=== PATIENT | female | born 1990 | race African-American/Black ===

== ENCOUNTER 2022-04-27 15:02 | Inpatient (IN) | payer OTHER, SELFPAY ==
[2022-04-27] VITALS (39 sets, daily range): BP systolic 94–137; BP diastolic 45–105; PULSE 32–124; RESP 12–20; TEMP 35.9–36.6; O2SAT 71–100; BMI 54.8
--- NOTE | 2022-04-27 15:22 | OBADM ---
This patient, Sg Zapien, admitted to the OB room OB Post 115 for observation. Patient/family oriented to hospital policies and general routines including ID bracelet, bed and alarms, visiting hours, pain management, procedures, bathroom and other care routines, personal items, smoking policy, room service/diet, and visiting hours. Patient/Family are encouraged to report perceived risks to care and to ask questions if they do not understand what they are told or what they should do.
[2022-04-27] MEDS: LACTATED RINGERS 1,000 ML 125 ML IV CONT (16:13)
--- NOTE | 2022-04-27 16:42 | PM.IMHP ---
H&P: HPI History of Present Illness Date/Time: 04/27/22 16:42 Chief Complaint: intrauterine at term chronic hypertension Narrative: 31 yo at 37w1d who presented 37w1d who presents for repeat . Pt's has been complicated by chronic hypertension. Pt has been non-compliant with her antihypertensives. Pt was seen by MFM today and was noted to have non-reassuring heart tones with repetitive decels. Pt did have an 8/8 BPP but it was noted to take the whole 30 minutes. Review of Systems Cardiovascular: Cardiovascular: Denies chest pain, Denies leg edema, Denies palpitations, Denies dyspnea and Denies dyspnea on exertion Respiratory: Respiratory: Reports cough, Denies dyspnea and Denies dyspnea on exertion Gastrointestinal: Gastrointestinal: Denies abdominal pain, Denies constipation, Denies diarrhea, Denies nausea and Denies vomiting Genitourinary: Genitourinary: Denies hematuria, Denies urinary frequency, Denies dysuria, Denies pelvic pain, Denies urinary incontinence and Denies vaginal discharge Neurologic: Reports system reviewed and no additional complaints, except as documented Psychiatric: Psychiatric: Reports no additional psychiatric complaints Endocrine: Endocrine: Denies palpitations [facility] Past Medical History Medical History (Updated 04/27/22 @ 16:57 by Omari Maldonado MD) Brown recluse spider bite (12/06/21) History of hypertension Suppression of menstruation Vaginal discharge Surgical History Surgical History Delivery by section (08/09/12) primary c/s distress Delivery by section (06/20/15) rpt c/s Delivery by section (08/30/16) rpt c/s Family History Family History Mother Diabetes mellitus Social History Social History Smoking status: Never smoker Alcohol intake: never Substance use: never Substance use type: does not use Gender identity (if verbalized by the patient): Female Sexual Orientation (if Verbalized by the Patient): Straight or Heterosexual Meds Home Medications and Allergies Home Medications Medication Instructions Recorded Confirmed Type vits no.126-ferrous fum 1 tablet PO DAILY 30 days #30 tabs 10/06/21 04/27/22 Rx 28 mg iron-folic acid 800 mcg tablet (Classic ) azithromycin 250 mg tablet See Rx Instructions PO .COMPLEX #6 04/27/22 04/27/22 Rx tabs Allergies Allergy/AdvReac Type Severity Reaction Status Date / Time cephalexin Allergy Severe Hives Verified 04/27/22 11:29 metronidazole [From Metrogel] Allergy Intermediate severe Verified 04/27/22 11:29 vaginal swelling diphenhydramine Allergy Itching Verified 04/27/22 15:19 [From Benadryl] prednisone Allergy Rash Verified 04/27/22 15:19 Vital Signs Vital Signs - 24 hr 04/27/22 15:32 04/27/22 15:33 Pulse Rate 78 78 Blood Pressure 126/77 126/77 Exam Const: General: no acute distress Eyes: EOM: EOMs intact bilaterally Neck: Neck: supple Thyroid: thyroid normal Chest: Breast/axilla inspection: normal inspection of the breasts Breast/axilla palpation: normal palpation of the breasts, normal palpation of the axillae and no axillary lymphadenopathy Resp: Effort & Inspection: normal respiratory effort Auscultation: clear to auscultation bilaterally Cardio: Rate: regular rate Rhythm: regular rhythm GI: Inspection: non-distended and other (Gravid) GI Palp: Yes Soft to palpation, No Tenderness to palpation present (GI) and No Guarding due to palpation present (GI) Auscultation: normal bowel sounds : Speculum Exam - Vagina: No vaginal bleeding OB/external & speculum: external exam normal; No vaginal bleeding Skin: General skin exam: normal color and no rashes or lesions noted Neuro: Cognition (Neuro)
[2022-04-27 16:58] LABS: Basophils Percent Auto 0.3 % (0.2-1.2); Eosinophils Absolute Auto 0.1 K/mm3 (0-0.3); Eosinophils Percent Auto 0.6 % (0-4.4); Hematocrit 38.5 % (37.0-47.0); Hemoglobin 12.3 g/dL (12.0-15.0); Immature Granulocyte Absolute 0.03 K/mm3 (0.00-0.031); Immature Granulocyte Percent A 0.3 % (0-0.5); Lymphocytes Absolute Auto 2.06 K/mm3 (0.9-3.2); Lymphocytes Percent Auto 20.6 % (18.3-44.2); Mean Corpuscular HGB Conc 31.9 g/dl (32-36); Mean Corpuscular Hemoglobin 27.3 pg (26-34); Mean Corpuscular Volume 85.4 fl (80-100); Mean Platelet Volume 11.7 fl (7.4-10.4); Monocytes Absolute Auto 0.4 K/mm3 (0.1-0.6); Monocytes Percent Auto 4.3 % (2.6-8.5); Neutrophils Absolute Auto 7.4 K/mm3 (1.3-6.7); Neutrophils Percent Auto 73.9 % (45.5-73.1); Platelet Count Result 205 k/mm3 (150-375); Red Blood Count 4.51 M/mm3 (4.2-5.4); Red Cell Distribution Width 13.2 % (11.5-14.5)
--- NOTE | 2022-04-27 16:59 | WPDHPUPDATE1 ---
History and Physical Update Update Date/Time: 04/27/22 16:59 History and Physical has been reviewed, including an updated exam of the patient. There are NO changes in the patient's condition. Risks, benefits, and alternatives have been discussed and questions answered. Patient agrees to proceed with procedure.
[2022-04-27 17:09] LABS: Alanine Aminotransferase 25 U/L (6-35); Albumin Level 3.8 g/dL (3.5-5.1); Alkaline Phosphatase 201 U/L (38-126); Anion Gap 8 mmol/L (8-16); Aspartate Amino Transferase 21 U/L (14-36); Bilirubin,Total 0.4 mg/dL (0.2-1.3); Blood Urea Nitrogen 6 mg/dL (7-17); Calcium 8.9 mg/dL (8.4-10.2); Carbon Dioxide 26 mmol/L (22-30); Chloride 102 mmol/L (98-107); Estimated CRCL calculation 164 ml/min; Estimated Glomerular Filt Rate > 60; Glucose 84 mg/dL (65-110); Potassium 3.9 mmol/L (3.4-5.0); Sodium 136 mmol/L (137-145)
[2022-04-27 17:16] LABS: Amphetamine Screen Urine Negative (Negative); Barbiturate Screen Urine Negative (Negative); Benzodiazepines Screen Urine Negative (Negative); Cannabinoid Screen Urine Negative (Negative); Cocaine Screen Urine Negative (Negative); Methadone Screen Urine Negative (Negative); Opiate Screen Urine Negative (Negative); Phencyclidine Screen Urine Negative (Negative)
--- NOTE | 2022-04-27 17:20 | WPDANESEPP ---
Anes - Eval Pre Procedure Procedure: Repeat c section Date/Time: 04/27/22 17:20 Surgeon: Joel Preop Diagnosis: Previous c section Pre Op Diagnosis: 37 w/d Patient Data Age: 31 Gender: F Height: 1.63 m Weight: 145 kg Last Vital Signs Pulse 76 04/27/22 17:19 BP 129/78 04/27/22 17:19 O2 Del Method Room Air 04/27/22 16:46 Allergies Allergy/AdvReac Type Severity Reaction Status Date / Time cephalexin Allergy Severe Hives Verified 04/27/22 11:29 metronidazole [From Metrogel] Allergy Intermediate severe Verified 04/27/22 11:29 vaginal swelling diphenhydramine Allergy Itching Verified 04/27/22 15:19 [From Benadryl] prednisone Allergy Rash Verified 04/27/22 15:19 Home Medications Medication Instructions Recorded Confirmed Type vits no.126-ferrous fum 1 tablet PO DAILY 30 days #30 tabs 10/06/21 04/27/22 Rx 28 mg iron-folic acid 800 mcg tablet (Classic ) azithromycin 250 mg tablet See Rx Instructions PO .COMPLEX #6 04/27/22 04/27/22 Rx tabs Laboratory Tests 04/27/22 04/27/22 04/27/22 16:42 16:42 16:42 WBC 10.0 K/mm3 K/mm3 (4.5-10.0) RBC 4.51 M/mm3 M/mm3 (4.2-5.4) Hgb 12.3 g/dL g/dL (12.0-15.0) Hct 38.5 % % (37.0-47.0) MCV 85.4 fl fl (80-100) MCH 27.3 pg pg (26-34) MCHC 31.9 g/dl L g/dl (32-36) RDW 13.2 % % (11.5-14.5) Plt Count 205 k/mm3 k/mm3 (150-375) MPV 11.7 fl H fl (7.4-10.4) Immature Gran % (Auto) 0.3 % % (0-0.5) Neut % (Auto) 73.9 % H % (45.5-73.1) Lymph % (Auto) 20.6 % % (18.3-44.2) Gaston % (Auto) 4.3 % % (2.6-8.5) Eos % (Auto) 0.6 % % (0-4.4) Baso % (Auto) 0.3 % % (0.2-1.2) Lymph # (Auto) 2.06 K/mm3 K/mm3 (0.9-3.2) Gaston # (Auto) 0.4 K/mm3 K/mm3 (0.1-0.6) Eos # (Auto) 0.1 K/mm3 K/mm3 (0-0.3) Baso # (Auto) 0.0 K/mm3 K/mm3 (0.0-0.1) Abs Immat Gran (auto) 0.03 K/mm3 K/mm3 (0.00-0.031) Absolute Neuts (auto) 7.4 K/mm3 H K/mm3 (1.3-6.7) Absolute Nucleated RBC 0.0 K/mm3 K/mm3 (0.0-0.012) Nucleated RBC % 0.0 % % (0.0-0.2) Sodium Potassium Chloride Carbon Dioxide Anion Gap BUN Creatinine Estim Creat Clear Calc Estimated GFR Glucose Calcium Total Bilirubin AST ALT Alkaline Phosphatase Total Protein Albumin Urine Opiates Screen Urine Methadone Screen Ur Barbiturates Screen Ur Phencyclidine Scrn Ur Amphetamine Screen U Benzodiazepines Scrn Urine Cocaine Screen U Cannabinoids Screen RPR Pending HIV 1&2 Ab/P24 Ag 4thGn Blood Type Pending Antibody Screen Pending 04/27/22 04/27/22 04/27/22 16:42 16:42 16:42 WBC RBC Hgb Hct MCV MCH MCHC RDW Plt Count MPV Immature Gran % (Auto) Neut % (Auto) Lymph % (Auto) Gaston % (Auto) Eos % (Auto) Baso % (Auto) Lymph # (Auto) Gaston # (Auto) Eos # (Auto) Baso # (Auto) Abs Immat Gran (auto) Absolute Neuts (auto) Absolute Nucleated RBC Nucleated RBC % Sodium 136 mmol/L L mmol/L (137-145) Potassium 3.9 mmol/L mmol/L (3.4-5.0) Chloride 102 mmol/L mmol/L (98-107) Carbon Dioxide 26 mmol/L mmol/L (22-30) Anion Gap 8 mmol/L mmol/L (8-16)
[2022-04-27] MEDS: GENTAMICIN SULFATE INJ 455 MG in DEXTROSE 5% 100 ML 94.28 MG IVPB (17:37)
[2022-04-27 17:55] LABS: HIV 1/2 Ab P24 Ag Result Negative (Negative)
--- NOTE | 2022-04-27 18:01 | P.PNAN_ITS ---
Anes - Eval Final PreProcedure Day of Procedure 04/27/22 18:01 Patient weight: super morbidly obese Heart: regular rate and rhythm Lungs: clear to auscultation and normal air movement Airway: Mallampati scale class IV Neurological: alert and oriented Last oral intake: >/= 8 hours ASA classification: III Emergent: no Anesthetic plan: proceed Anesthesia type and monitoring: regional spinal Results Review: All pre-operative results and documents have been reviewed as part of the pre- operative evaluation. Informed Consent: The patient's anesthetic plan and its attendant risks and benefits were di scussed with the patient/family/POA. Questions were solicited and answers provided to the satisfaction of the patient/family/POA.
--- NOTE | 2022-04-27 20:32 | W.PM.PROC2 ---
Procedure Note - Detailed Date of Procedure 04/27/22 Pre-op Diagnosis intrauterine at term chronic hypertension non-reassuring FHT Post-op Diagnosis Same Procedure Performed repeat low transverse section bilateral salpingectomy Surgeon Omari Maldonado MD Anesthesia Spinal and Epidural Indications CHTN non-reassuring FHT Findings Dense adhesions between the rectus muscle and abdominal wall, omental adhesions to the anterior uterine wall Description of Procedure The patient was taken to the operating room. A combined spinal epidural anesthesic was administered and found to be adequate at a t-10 level. The patient was placed in a supine position with a slight left lateral tilt. A england catheter was placed with return of clear urine. A Bovie grounding pad was placed. Surgical prep was performed and surgical drapes were placed. A surgical time out was performed. A Pfannenstiel skin incision was then made with the scalpel and carried through to the underlying layer of fascia. The fascia was then incised in the midline and the incision was extended laterally with the Snell scissors. Dense adhesions were noted almost masking the fascial layer. The superior aspect of the fascia was then grasped with the Jesse clamps, elevated, and the underlying rectus muscles dissected off bluntly and sharply. Attention was then turned to the inferior aspect of this incision which, in a similar fashion, was grasped, tented up with the Jesse clamps, and the rectus muscles dissected off both bluntly and sharply. The rectus muscles were then in the midline. The peritoneum was not able to be identified due to adhesions. The intraperitoneal cavity was entered sharply. Adhesions were felt along the anterior surface of the uterus. The rectus muscles were difficult to separate due to adhesions limiting access to the abdominal cavity. The rectus muscles were dissected off the anterior abdominal wall adhesions sharply. A Mobius retractor was placed to help with visualization. The vesico-uterine serosa was identified and adhesions were dissected to identify uterine serosa and to create a bladder flap. The uterus was inspected for rotation. A low-transverse uterine incision was made sharply with the scalpel and entry was made into the uterine cavity. An amniotomy was made and copious amounts of clear fluid were noted on return. The uterine incision was extended laterally bluntly. Attempts were made to deliver the fetus through the hysterotomy but was limited due to adhesive tissue. A kiwi vacuum was applied but popped off. The mobius retractor was removed. A Maylard incision was made to the left belly of the rectus muscle. Elizabetht-Barone forceps were then obtained. The head was noted to be occiput to the maternal left. The right blade was placed along the head. The left blade was then placed along the head. The forceps approximated without difficulty. The fetus was then delivered through the hysterotomy without difficulty. The umbilical cord was clamped twice and cut. The infant was handed off to the waiting staff. A second segment of umbilical cord was clamped and cut for cord blood gasses. Cord blood was collected for determination of the blood type and for direct Stevens. The placenta was delivered spontaneously without difficulty. The placenta appeared grossly normal and complete. The uterus was exteriorized and cleared of all clots and debris. The uterine incision was repaired using 0-monocryl suture in a running fashion. Attention was not turned to the fallopian tubes to perform the salpingectomy. The left fallopian tube was identified and followed out to the fimbriae. The fallopian tube was transected using the ligasure device. The procedure was then repeated on the right side. The uterine closure was inspected for hemostasis. Several areas were coagulated using Bovie cautery. Hemaderm was then applied to the hysterotomy and site of
[2022-04-27] MEDS: KETOROLAC 30 MG/ML VIAL (*BKC) IV PUSH (23:14)
[2022-04-28] VITALS (7 sets, daily range): BP systolic 114–147; BP diastolic 68–89; PULSE 68–85; RESP 16–18; TEMP 35.9–36.6; O2SAT 100
[2022-04-28 05:17] LABS: Basophils Absolute Auto 0.1 K/mm3 (0.0-0.1); Basophils Percent Auto 0.4 % (0.2-1.2); Eosinophils Percent Auto 0.1 % (0-4.4); Hematocrit 36.1 % (37.0-47.0); Hemoglobin 11.4 g/dL (12.0-15.0); Immature Granulocyte Absolute 0.04 K/mm3 (0.00-0.031); Immature Granulocyte Percent A 0.3 % (0-0.5); Lymphocytes Absolute Auto 1.48 K/mm3 (0.9-3.2); Lymphocytes Percent Auto 11.1 % (18.3-44.2); Mean Corpuscular HGB Conc 31.6 g/dl (32-36); Mean Corpuscular Hemoglobin 27.3 pg (26-34); Mean Corpuscular Volume 86.4 fl (80-100); Mean Platelet Volume 11.7 fl (7.4-10.4); Monocytes Absolute Auto 0.7 K/mm3 (0.1-0.6); Monocytes Percent Auto 5.1 % (2.6-8.5); Neutrophils Absolute Auto 11.1 K/mm3 (1.3-6.7); Platelet Count Result 183 k/mm3 (150-375); Red Blood Count 4.18 M/mm3 (4.2-5.4); Red Cell Distribution Width 13.2 % (11.5-14.5); White Blood Count 13.3 K/mm3 (4.5-10.0)
[2022-04-28] MEDS: MULTIVIT/MIN/PREN/FOL AC/IRON TABLET 1 TAB PO (07:30)
[2022-04-28] MEDS: DOCUSATE SODIUM 100 MG CAPSULE PO (07:30)
[2022-04-28] MEDS: POLYSACCHARIDE IRON COMPLEX 150 MG CAPSULE PO (07:30)
[2022-04-28] MEDS: SIMETHICONE 80 MG TAB.CHEW PO ×3 (07:30→23:25)
[2022-04-28] MEDS: HYDROcodone/acetaminophen (*CRX) 10-325 MG TABLET 1 TAB PO ×2 (07:31→10:28)
[2022-04-28] MEDS: IBUPROFEN 600 MG TABLET PO ×2 (07:31→23:25)
--- NOTE | 2022-04-28 08:07 | WPDANLDNPN2 ---
Anes-Prog Note L&D-Neuraxial Date/Time: 04/28/22 08:07 Patient feedback: Patient satisfied with post-operative pain management.
--- NOTE | 2022-04-28 08:07 | WPDANLDPN2 ---
Anes-Prog Note L&D Date/Time: 04/28/22 08:07 Neuro status: Neuro function grossly intact. Vital Signs: Last Vital Signs Temp 35.9 C L 04/27/22 23:30 Pulse 68 04/28/22 04:45 Resp 18 04/28/22 04:45 BP 123/77 04/28/22 04:45 Pulse Ox 100 04/28/22 04:45 O2 Del Method Room Air 04/28/22 04:45 Pain score (VAS): 0 I/O: Intake & Output 04/27/22 04/28/22 04/28/22 23:59 07:59 15:59 Intake Total 500 800 Output Total 225 Balance 500 575 Patient feedback: Patient satisfied with anesthetic care.
[2022-04-28 09:02] LABS: Rapid Plasma Reagin Non-Reactive (NonReactive)
--- NOTE | 2022-04-28 09:49 | PM.GYNPNOP ---
CATTLE MANAGER - A/P Postoperative Procedures: Procedures Operation Date: 04/27/22 18:45 Actual Procedure Side Surgeon p Section Bilateral Omari Maldonado MD Time Spent With Patient Time: Total time spent is greater than 50% in coordination of care (as documented) at patient's floor/unit and/or counseling patient: Time with patient: 15 - 25 minutes CATTLE MANAGER- PN:Subj Post-Op Subjective Date/time seen: 04/28/22 09:49 31-year-old female status post repeat and tubal ligation. This morning pain is reasonably well controlled, she is eating regular diet without nausea vomiting. Has not had any flatus or bowel of yet. Abdomen soft appropriately tender. Bandage dry. Plan: 1. Continue routine care 2. Expect discharge in day or 2 when clinical situation dictates. CATTLE MANAGER - PN: Obj Data Vital Signs Vital Signs: Vital Signs - 24 hr 04/27/22 16:46 04/27/22 15:32 04/27/22 17:19 Temperature Pulse Rate 78 76 Respiratory Rate Blood Pressure 126/77 129/78 Pulse Oximetry Oxygen Delivery Room Air 04/27/22 16:00 04/27/22 18:02 04/27/22 18:32 Temperature 97.9 F Pulse Rate 78 85 Respiratory Rate Blood Pressure 130/72 136/73 Pulse Oximetry Oxygen Delivery 04/27/22 21:26 04/27/22 21:31 04/27/22 21:36 Temperature Pulse Rate 71 Respiratory Rate Blood Pressure 99/52 L Pulse Oximetry 100 100 98 Oxygen Delivery 04/27/22 21:40 04/27/22 21:45 04/27/22 21:46 Temperature Pulse Rate 74 Respiratory Rate Blood Pressure 99/55 L Pulse Oximetry 95 100 Oxygen Delivery 04/27/22 21:50 04/27/22 21:57 04/27/22 21:58 Temperature Pulse Rate Respiratory Rate Blood Pressure Pulse Oximetry 100 86 L 83 L Oxygen Delivery 04/27/22 22:02 04/27/22 22:07 04/27/22 22:12 Temperature Pulse Rate Respiratory Rate Blood Pressure Pulse Oximetry 71 L 95 99 Oxygen Delivery 04/27/22 22:14 04/27/22 22:19 04/27/22 22:22 Temperature Pulse Rate Respiratory Rate Blood Pressure Pulse Oximetry 98 91 92 Oxygen Delivery 04/27/22 22:22 04/27/22 22:25 04/27/22 22:28 Temperature Pulse Rate Respiratory Rate Blood Pressure Pulse Oximetry 96 95 72 L Oxygen Delivery 04/27/22 22:30 04/27/22 22:35 04/27/22 22:40 Temperature Pulse Rate Respiratory Rate Blood Pressure Pulse Oximetry 79 L 100 100 Oxygen Delivery 04/27/22 22:45 04/27/22 22:50 04/27/22 22:55 Temperature Pulse Rate Respiratory Rate Blood Pressure Pulse Oximetry 100 100 96 Oxygen Delivery 04/27/22 23:00 04/27/22 23:00 04/27/22 23:03 Temperature Pulse Rate 65 Respiratory Rate Blood Pressure 137/105 H Pulse Oximetry 100 100 Oxygen Delivery 04/27/22 20:40 04/27/22 20:55 04/27/22 21:10 Temperature 97.4 F L Pulse Rate 75 71 66 Respiratory Rate 12 16 16 Blood Pressure 97/52 L 102/48 L 94/45 L Pulse Oximetry 100 100 100 Oxygen Delivery Room Air Room Air Room Air 04/27/22 21:25 04/27/22 21:40 04/27/22 21:55 Temperature 97.8 F Pulse Rate 66 Respiratory Rate 16 16 16 Blood Pressure 99/47 L Pulse Oximetry 100 Oxygen Delivery Room Air 04/27/22 22:10 04/27/22 22:25 04/27/22 22:48 Temperature Pulse Rate Respiratory Rate 16 16 16 Blood Pressure Pulse Oximetry Oxygen Delivery 04/27/22 23:30 04/27/22 23:30 04/28/22 04:45 Temperature 96.7 F L Pulse Rate 73 73 68 Respiratory Rate 20 20 18 Blood Pressure 136/76 Pulse Oximetry 100 100 100 Oxygen Delivery Room Air Room Air 04/28/22 04:45 04/28/22 07:35 04/27/22 15:33 Temperature 97.6 F Pulse Rate 68 72 78 Respiratory Rate 18 16 Blood Pressure 123/77 135/84 126/77 Pulse Oximetry 100 100 Oxygen Delivery Intake/Output Intake/Output: Intake & Output 04/25/22 04/26/22 04/27/22 04/28/22 23:59 23:59 23:59 23:59 Intake Total 500 800 Output Total 225
--- NOTE | 2022-04-28 11:09 | PM.OBPRVD ---
OB - Delivery Note Procedure Delivery date: 04/27/22 Procedure: Procedures Operation Date: 04/27/22 18:45 Actual Procedure Side Surgeon p Section Bilateral Omari Maldonado MD Events: Chronic Hypertension Intrapartal Events: Non-Reassuring Status Induction method: None Route of delivery: (repeat low transverse) Specimen: Yes (placenta) Quantitative Blood Loss (ml): 515 Anesthesia type: Spinal Disposition: Floor Narrative: See operative note for dictation Baby Date of : 04/27/22 Weeks of gestation at delivery: 37 gender: Male Weight (pounds): 6 Weight (ounces): 6 presentation: vertex position: Transverse Placenta delivery description: Manual Removal Cord Vessel Description: 3 Vessels score one minute: 2 score five minutes: 9 AMG Delivery Billing Delivery Delivery: Delivery Charge
[2022-04-28] MEDS: HYDROcodone/acetaminophen (*CRX) 5-325 MG TABLET 1 TAB PO (23:25)
[2022-04-29] MEDS: HYDROcodone/acetaminophen (*CRX) 10-325 MG TABLET 1 TAB PO ×2 (05:01→23:25)
[2022-04-29] MEDS: SIMETHICONE 80 MG TAB.CHEW PO ×3 (05:01→17:45)
--- NOTE | 2022-04-29 07:15 | PM.OBPNVD ---
OB - PN: Subj Subjective Date/time seen: 04/29/22 07:15 Narrative: POD#2 Sg reports doing well today. Her bleeding is light. Her pain is controlled, having some gas pains. She is tolerating regular diet, voiding, passing gas, and ambulating without issues. She denies any issues with her incision. She is bottle feeding. OB - PN: Obj Data Labs CBC & Chem 7: 04/28/22 04:46 04/27/22 16:42 Labs: Laboratory Results - last 24 hr 04/27/22 16:42 RPR Non-reactive OB - PN A/P Assessment and Plan (1) S/P repeat low transverse : Code(s): Z98.891 - History of uterine scar from previous surgery Status: Acute (2) S/P tubal ligation: Code(s): Z98.51 - Tubal ligation status Status: Acute Plan day: 2 Plan: routine care and discharge home (tomorrow AM) Comments: - Will restart home labetalol 100mg BID - Pelvic rest; take meds as prescribed - Incision care/no heavy lifting - ER return precautions: fever, n/v/abd pain, bleeding, HTN Time Spent With Patient Time: Total time spent is greater than 50% in coordination of care (as documented) at patient's floor/unit and/or counseling patient: Review of Systems Constitutional: Constitutional: Denies chills, Denies fever(s) and Denies headache(s) Eyes: Eyes: Denies change in vision ENT: Denies dizziness and Denies headache(s) Cardiovascular: Cardiovascular: Denies chest pain, Denies palpitations and Denies dyspnea Respiratory: Respiratory: Denies cough and Denies dyspnea Gastrointestinal: Gastrointestinal: Denies nausea and Denies vomiting Genitourinary: Comments: normal bleeding Neurologic: Denies dizziness and Denies headache(s) Endocrine: Endocrine: Denies palpitations Exam Const: General: cooperative, comfortable and no acute distress Orientation/consciousness: patient oriented x3 Resp: Effort & Inspection: normal respiratory effort Auscultation: clear to auscultation bilaterally Cardio: Rate: regular rate GI: Inspection: non-distended and incision (covered with clean dressing) GI Palp: Yes abdominal tenderness (appropriate) and Yes Soft to palpation Auscultation: normal bowel sounds : Other: fundus firm Skin: General skin exam: normal color Neuro: General: patient oriented x3 Extrem: General: normal to inspection Psych: Appearance: grossly normal Affect: normal affect Attitude: cooperative
[2022-04-29 07:40] VITALS: BP 141/88; PULSE 87; RESP 18; TEMP 36.7; O2SAT 100
[2022-04-29 09:00] VITALS: PULSE 87; RESP 18; O2SAT 100
[2022-04-29] MEDS: IBUPROFEN 600 MG TABLET PO ×2 (10:45→17:45)
[2022-04-29] MEDS: MULTIVIT/MIN/PREN/FOL AC/IRON TABLET 1 TAB PO (10:45)
[2022-04-29] MEDS: DOCUSATE SODIUM 100 MG CAPSULE PO ×2 (10:45→17:45)
[2022-04-29] MEDS: HYDROcodone/acetaminophen (*CRX) 5-325 MG TABLET 1 TAB PO ×2 (11:28→17:45)
[2022-04-29 11:31] VITALS: PULSE 82
[2022-04-29] MEDS: LABETALOL HCL 100 MG TABLET PO (11:31)
[2022-04-29 18:54] VITALS: BP 133/79; PULSE 69; RESP 20; TEMP 36.6; O2SAT 100
[2022-04-30] MEDS: HYDROcodone/acetaminophen (*CRX) 5-325 MG TABLET 1 TAB PO ×3 (04:55→16:30)
[2022-04-30] MEDS: IBUPROFEN 600 MG TABLET PO ×2 (04:55→11:42)
[2022-04-30] MEDS: SIMETHICONE 80 MG TAB.CHEW PO ×2 (04:56→11:46)
--- NOTE | 2022-04-30 07:00 | PC.NURSE ---
PT introductions made and plan of care discussed per post , c section, pain management, bottle feeding, daily care activities pending discharge to home. PT and sole recipient of such instructions and no barriers to learning identified at this time. PT received such instructions per one to one discussion, mom baby care guide and demonstrations this shift. PT verbalized understanding of such care.
[2022-04-30 08:00] VITALS: BP 141/89; PULSE 80; RESP 18; TEMP 36.8; O2SAT 100
--- NOTE | 2022-04-30 09:01 | PM.OBDSVD ---
DS: Admitting Diagnosis Discharge Date 04/30/22 Admitting Diagnosis heart decelerations Previous section x3 DS: Discharge Diagnosis Discharge Diagnosis (1) S/P repeat low transverse : Code(s): Z98.891 - History of uterine scar from previous surgery Status: Acute (2) S/P tubal ligation: Code(s): Z98.51 - Tubal ligation status Status: Acute OB - DS: Summary OB Procedures : NST and Ultrasound OB Procedures Intrapartum: low cervical, transverse and Tubal ligation OB Procedures: : None Peripartum Data Delivery Method: Section Procedures: Procedures Operation Date: 04/27/22 18:45 Actual Procedure Side Surgeon p Section Bilateral Omari Maldonado MD complications: none 1: Gender: Male Disposition of : home Status at Discharge Functional status at discharge: independent ambulation Overall status at discharge: patient is back to baseline Time Spent with Patient Time attestation: Total time spent providing and/or coordinating discharge services: Time spent: Less than 30 minutes Exam Const: General: cooperative, comfortable, no acute distress and obese Orientation/consciousness: patient oriented x3 Resp: Effort & Inspection: normal respiratory effort Auscultation: clear to auscultation bilaterally Cardio: Rate: regular rate GI: Inspection: non-distended and incision (KANDICE dressing in place) GI Palp: No abdominal tenderness and Yes Soft to palpation Auscultation: normal bowel sounds : Other: fundus firm Skin: General skin exam: normal color Neuro: General: patient oriented x3 Extrem: General: normal to inspection Psych: Appearance: grossly normal Affect: normal affect Attitude: cooperative DS: Data Data Completed and Pending Pending studies at discharge: Pending at discharge 04/27/22 21:33 Surgical [PTH] Routine Surgical [PTH] Routine Discharge Plan Discharge Attending physician on discharge: Rosa Alvarado Discharging Clinician: Rosa Alvarado Anticipated Discharge Date/Time: 04/30/22 09:00 Patient Disposition: Home, Self-Care Activity: may shower and pelvic rest Diet: regular Discharge Instructions: no heavy lifting over 10lbs for 6wks remove dressing after 7-10 days Patient Instructions: Antibiotic Form Stand Alone Forms: General Discharge Information Follow-up/Referrals: Omari Maldonado MD [Physician] - 4 Weeks (1wk incision check) Discharge Medications: New acetaminophen [Mapap (acetaminophen)] 325 mg Tablet 650 mg PO Q6H PRN (Reason: Mild Pain (1-3)) Qty: 60 0RF hydrocodone-acetaminophen 5-325 mg Tablet 1 tablet PO Q3H PRN (Reason: Moderate Pain (4-6)) 3 Days Qty: 24 0RF docusate sodium 100 mg Capsule 100 mg PO BID Qty: 40 0RF ibuprofen 600 mg Tablet 600 mg PO Q6H PRN (Reason: Cramping) Qty: 40 0RF labetalol 100 mg Tablet 100 mg PO Q12HR Qty: 60 3RF Continued azithromycin 250 mg tablet See Rx Instructions PO .COMPLEX Qty: 6 0RF Rx Instructions: For 250 mg dose pack: take 500 mg today (day 1), then 250 mg for 4 days (days 2-5) PO Discontinued Classic 28 mg iron- 800 mcg tablet 1 tablet PO DAILY 30 Days Qty: 30 2RF Date of admission: 04/27/22 15:50 Primary Care Provider: PHYSICIAN,CASING COOKER Admitting Provider: Kaiden Ayala Attending physician on admission: Kaiden Ayala Condition: Stable
[2022-04-30] MEDS: MEASLES,MUMPS,RUBELLA VACCINE 0.5 ML VIAL SUB-Q (11:17)
[2022-04-30] MEDS: TETANUS,DIPHTHERIA,AC PERTUSSIS ADULT (0.5 ML) BOOSTRIX IM (11:19)
[2022-04-30] MEDS: DOCUSATE SODIUM 100 MG CAPSULE PO ×2 (11:41→11:43)
[2022-04-30] MEDS: MULTIVIT/MIN/PREN/FOL AC/IRON TABLET 1 TAB PO (11:42)
[2022-04-30 11:45] VITALS: PULSE 80; RESP 18; O2SAT 100
--- NOTE | 2022-04-30 16:00 | PC.NURSE ---
PT received discharge instructions per protocol and verbalized understanding of such care.
--- NOTE | 2022-04-30 16:37 | PC.NURSE ---
PT discharged to home ambulatory accompanied by fob and infant and taken to waiting car. Follow up appts confirmed
== END 2022-04-30 16:37 | disposition home or self-care (01) | DRG 540 ==
LOC: ANHOBPP 16:08 → ANHOB2 04-29 07:55 → ANHLDR 05-03 08:20 → ANHOB2 05-03 08:20 → ANHOBPP 05-03 08:20
PROVIDERS: Student in an Organized Health Care Education/Training Program; Admitting Provider Obstetrics & Gynecology; Visit Provider Obstetrics & Gynecology
PROC: 10D00Z1 Extraction of Products of Conception, Low, Open Approach (ICD-10-PCS; CPT 59514; principal; 2022-04-27 18:45)
DX: O34.219 Maternal care for unspecified type scar from previous cesarean delivery (principal); O10.92 Unspecified pre-existing hypertension complicating childbirth; O76 Abnormality in fetal heart rate and rhythm complicating labor and delivery; Z30.2 Encounter for sterilization; O99.214 Obesity complicating childbirth; O99.824 Streptococcus B carrier state complicating childbirth; O99.892 Other specified diseases and conditions complicating childbirth; N73.6 Female pelvic peritoneal adhesions (postinfective); Z3A.37 37 weeks gestation of pregnancy; Z37.0 Single live birth; Z91.14 Patient's other noncompliance with medication regimen
CPT/HCPCS: 36415; 80053; 80307; 85025; 86592; 86703; 86850; 86900; 86901; 88302; 88307; 90710; 90715; A9270; G0432; J1580; J1885; J2274; J2405; J7120